=== PATIENT | female | born 1970 | race Caucasian/White ===

== ENCOUNTER 2020-12-12 08:38 | Day surgery (SDC) | payer OTHER ==
[~2020-12-12] VITALS: Ht 157.5 cm; Wt 94.8 kg
[2020-12-12] MEDS ORDERED: LIDOCAINE 2% 100 MG/5 ML UJET TP ONE (12:02)
[2020-12-12] MEDS ORDERED: fentaNYL citrate 0.05 MG/ML VIAL ONE (12:02)
[2020-12-12] MEDS ORDERED: fentaNYL citrate 0.05 MG/ML VIAL IVP ONE (12:55)
== END 2020-12-12 13:12 | disposition home or self-care (01) ==
LOC: MDS 08:38 → MMU 08:39 → MDS 13:12
PROVIDERS: ATTEND Internal Medicine Gastroenterology
DX: Z12.11 Encounter for screening for malignant neoplasm of colon (principal); E11.9 Type 2 diabetes mellitus without complications; I10 Essential (primary) hypertension; E78.00 Pure hypercholesterolemia, unspecified; Z79.82 Long term (current) use of aspirin; Z79.84 Long term (current) use of oral hypoglycemic drugs; Z79.899 Other long term (current) drug therapy
CPT/HCPCS: 45378; J3010